=== PATIENT | female | born 1940 | race Caucasian/White ===

== ENCOUNTER 2024-06-02 06:09 | Inpatient (IN) ==
[2024-06-02] MEDS: LASIX TAB PO SCH (06:35)
[2024-06-02] MEDS: LIPITOR PO SCH (06:36)
--- NOTE | 2024-06-02 06:42 | CT ---
TESTING TESTING TESTING TESTING MTDD
--- NOTE | 2024-06-02 06:48 | PCM.PROG ---
Date/Time Seen Date Seen by Provider: 06/02/24 Time Seen by Provider: 06:47 Provider Provider: TATIANA JACKSON DR, [facility] Chief Complaint Chief Complaint: TESTING AFTER UPDATE Objective Appearance: Positive Well-appearing Chest/Lungs: Positive Symmetrical With Equal Breath Sounds Heart: Positive RRR GI/: Positive Soft Neurological: Positive Sensation Intact Lab Results Lab Results: Lab Results: Last 24 Hours 06/02/24 06:32 WBC 10.00 RBC 5.00 Hgb 13.0 Hct 50.0 H MCV 90.0 MCH 30.0 MCHC 35.0 RDW Coeff of Kami 14.0 Plt Count 400 Immature Gran % (Auto) 4.0 Neut % (Auto) 50.0 Lymph % (Auto) 50.0 [place] % (Auto) 5 Eos % (Auto) 5.0 Baso % (Auto) 3.0 Neut # (Auto) 2.0 Lymph # (Auto) 0.5 L [place] # (Auto) 1.0 Eos # (Auto) 0.5 Baso # (Auto) 0.2 Immature Gran # (Auto) 1.0 Additional Comments Additional Comments: I have independently reviewed and interpreted the labs/EKGs/imaging ordered during this hospital stay. I have reviewed outside records that are available in our EMR that pertain to medical stay including imaging/notes/labs from previous visits. Active Medications Active Medications: Medications Generic Name Dose Route Start Last Admin Trade Name Freq PRN Reason Stop Dose Admin Atorvastatin Calcium 10 mg 06/02/24 09:00 Atorvastatin Calcium 10 Mg Tablet PO DAILY DONI Furosemide 20 mg 06/02/24 07:00 Furosemide 20 Mg Tablet PO QDAC2 DONI Review Statement Review Statement: I have personally discussed and reviewed the patient's visit/currently labs/imaging/decision making with Dr. Humphrey, my supervising attending. Greater that 50 minutes spent with patient, 50% of the time spent with this patient was devoted to counseling and coordination of care.
== END 2024-06-02 12:39 | disposition home or self-care (01) | DRG 951 ==
LOC: MEDSURG A 06:09
PROVIDERS: ADMIT Hospitalist
DX: Z00.00 Encounter for general adult medical examination without abnormal findings